=== PATIENT | male | born 1995 | race Caucasian/White ===

== ENCOUNTER 2018-02-05 01:05 | Emergency (ER) | payer OTHER ==
[2018-02-05] MEDS ORDERED: Ondansetron ODT TAB* 4 MG PO ONE (01:16)
[2018-02-05] MEDS ORDERED: Ondansetron INJ* 2 MG/ML VIAL IV ONE (01:27)
--- NOTE | 2018-02-05 01:55 | ED ---
Substance Abuse/Use - HPI Summary HPI Summary: Patient brought by ambulance for EtOH intoxication and vomiting.. Patient responsive to verbal stimuli states he drank "a lot", denies any drug use. - History Of Current Complaint Chief Complaint: EDOverdose Stated Complaint: ETOH Time Seen by Provider: 02/05/18 01:15 Hx Obtained From: Patient Overdose Characteristics: Oral Associated Signs And Symptoms: Nausea, Vomiting - Allergies/Home Medications Allergies/Adverse Reactions: Allergies Allergy/AdvReac Type Severity Reaction Status Date / Time No Known Allergies Allergy Verified 02/05/18 01:27 Home Medications: Home Medications Unobtainable 02/05/18 [History Confirmed 02/05/18] PMH/Surg Hx/FS Hx/Imm Hx Endocrine/Hematology History: Denies: Hx Anticoagulant Therapy History: Denies: Hx Dialysis EENT History: Denies: Hx Deafness Infectious Disease History: No Infectious Disease History: Denies: Traveled Outside the [place] in Last 30 Days - Social History Alcohol Use: uknown at this point Substance Use Type: Reports: Other Substance Use Comment - Amount & Last Used: uknown Smoking Status (MU): Unknown if Ever Smoked Review of Systems Constitutional: Negative Eyes: Negative ENT: Negative Cardiovascular: Negative Respiratory: Negative Positive: Vomiting, Nausea Genitourinary: Negative Musculoskeletal: Negative Skin: Negative Neurological: Negative Psychological: Normal All Other Systems Reviewed And Are Negative: Yes Physical Exam - Summary Physical Exam Summary: Patient responsive to verbal stimuli. Vomiting. Physical exam otherwise unremarkable. Triage Information Reviewed: Yes Vital Signs On Initial Exam: Initial Vitals Temp Pulse Resp BP Pulse Ox 98.6 F 82 18 114/81 97 02/05/18 01:05 02/05/18 01:05 02/05/18 01:05 02/05/18 01:05 02/05/18 01:05 Vital Signs Reviewed: Yes Appearance: Positive: Well-Appearing Skin: Positive: Warm Head/Face: Positive: Normal Head/Face Inspection Eyes: Positive: Normal Neck: Positive: Supple Respiratory/Lung Sounds: Positive: Clear to Auscultation Cardiovascular: Positive: Normal Abdomen Description: Positive: Nontender Musculoskeletal: Positive: Normal Neurological: Positive: Normal Psychiatric: Positive: Normal AVPU Assessment: Alert - Florien Coma Scale Best Eye Response: 4 - Spontaneous Best Motor Response: 6 - Obeys Commands Best Verbal Response: 5 - Oriented Coma Scale Total: 15 Diagnostics - Vital Signs Vital Signs Temp Pulse Resp BP Pulse Ox 02/05/18 01:05 98.6 F 82 18 114/81 97 - Laboratory Lab Statement: Any lab studies that have been ordered have been reviewed, and results considered in the medical decision making process. Course/Dx - Course Course Of Treatment: Patient brought by ambulance for EtOH intoxication and vomiting.. Patient responsive to verbal stimuli states he drank "a lot", denies any drug use. Patient responsive to verbal stimuli. Vomiting. Physical exam otherwise unremarkable. Vital signs within normal limits. Alcohol level 255 at 01:23 AM. Will be sober at 8.5 hrs. - Diagnoses Provider Diagnoses: ETOH abuse Discharge - Sign-Out/Discharge Documenting (check all that apply): Sign-Out Patient Signing out patient TO: Feroz Cruz - Discharge Plan Condition: Stable Disposition: HOME Patient Education Materials: Abuse of Alcohol (ED) - Billing Disposition and Condition Condition: STABLE Disposition: Home
--- NOTE | 2018-02-05 04:37 | ED ---
Progress - Progress Note Progress Note: Patient brought by ambulance for EtOH intoxication and vomiting. Patient responsive to verbal stimuli states he drank "a lot", denies any drug use. Patient signed out from Dr. Levy to Dr. Cruz during a shift change. Re-Evaluation - Re-Evaluation 1 Re-Evaluation Time: 06:35 Change: Improved Comment: Patient is now walking with a steady gait, alert and oriented. Course/Dx - Course Course Of Treatment: Patient brought by ambulance for EtOH intoxication and vomiting.. Patient responsive to verbal stimuli states he drank "a lot", denies any drug use. Patient responsive to verbal stimuli. Vomiting. Physical exam otherwise unremarkable. Vital signs within normal limits. Alcohol level 255 at 01:23 AM. Will be sober at 8.5 hrs. As of 06:35, patient has improved and is walking with a steady gait, alert and oriented. He can be d/ c home with a dx of EtOH abuse. - Diagnoses Provider Diagnoses: ETOH abuse Discharge - Sign-Out/Discharge Documenting (check all that apply): Patient Departure - D/C, Receiving Sign-Out Receiving patient FROM: Ananda Levy - Discharge Plan Condition: Stable Disposition: HOME Patient Education Materials: Abuse of Alcohol (ED) Referrals: No Primary Care Phys,NOPCP [Medical Doctor] - (Follow up with [facility] in 2 days.) Additional Instructions: RETURN TO THE EMERGENCY DEPARTMENT FOR CHANGING OR WORSENING SYMPTOMS. FOLLOW UP WITH PCP IN 1-2 DAYS. - Attestation Statements Document Initiated by Scribe: Yes Documenting Scribe: Eliud Valencia Provider For Whom Scribe is Documenting (Include Credential): Mark Cruz MD Scribe Attestation: Eliud Ceja, scribed for Mark Cruz MD on 02/05/18 at 0640.
[2018-02-05 06:42] VITALS: BP 105/64
== END 2018-02-05 06:41 | disposition home or self-care (01) ==
LOC: ED 01:05
DX: F10.129 Alcohol abuse with intoxication, unspecified (principal); F10.10 Alcohol abuse, uncomplicated
CPT/HCPCS: 36415; 80320; 96374; 99284; G0480; J2405